=== PATIENT | male | born 2000 | race Caucasian/White ===

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

== ENCOUNTER 2023-08-05 00:34 | Inpatient (IN) ==
[2023-08-05] MEDS ORDERED: Tetan/Diph/Pertus SYR(Tdap) 0.5 ML SYR(BOOSTRIX) use SYR contains LATEX IM ONE (01:31)
[2023-08-05 01:55] LABS: ABS Eosinophils 0.4 10^3/uL (0.0-0.5); ABS Lymphocytes 1.9 10^3/uL (1.0-4.8); ABS Monocytes 0.5 10^3/uL (0.0-1.1); ABS Neutrophils 4.8 10^3/uL (1.5-7.6); ABS Nucleated RBC 0.01 10^3/ul; Eosinophil % 5.3 %; Hematocrit 46.2 % (38-53); Hemoglobin 16.2 g/dL (13.2-16.3); Lymphocyte % 25.2 %; Mean Corpuscular Hemoglobin 31.3 pg (27-33); Mean Corpuscular Volume 89.5 fL (80-97); Mean Platelet Volume 8.8 fL (7.5-11.2); Nucleated Red Blood Cells % 0.1 %/100WBC (0.0-0.8); Platelet Count 268 10^3/uL (150-450); Red Blood Count 5.16 10^6/uL (4.06-5.63); Red Cell Distribution Width 12.7 % (12-17); White Blood Count 7.6 10^3/uL (3.6-10.2)
[2023-08-05 02:09] LABS: Urine Appearance Clear; Urine Bilirubin Negative (Negative); Urine Blood Negative (Negative); Urine Color Straw; Urine Glucose Negative (Negative); Urine Ketones Trace (Negative); Urine Nitrite Negative (Negative); Urine Protein Negative (Negative); Urine Specific Gravity 1.008 (1.002-1.030); Urine Urobilinogen Negative (Negative)
[2023-08-05 02:13] LABS: ALT 17 U/L (7-52); AST 19 U/L (13-39); Albumin 5.1 g/dL (3.2-5.2); Albumin/Globulin Ratio 1.8 (1-3); Alkaline Phosphatase 63 U/L (35-149); Anion Gap 11 mmol/L (2-16); Blood Urea Nitrogen 12 mg/dL (6-24); CO2 Carbon Dioxide 24 mmol/L (22-32); Chloride 105 mmol/L (101-111); Creatinine, Serum 1.08 mg/dL (0.67-1.17); Globulin 2.8 g/dL (2-4); Glucose 84 mg/dL (70-100); Potassium 3.9 mmol/L (3.5-5.0); Sodium 140 mmol/L (135-145); Total Bilirubin 0.8 mg/dL (0.2-1.0); Total Protein 7.9 g/dL (6.4-8.9); eGFR CKD-EPI 97.7 (>60)
[2023-08-05 02:25] LABS: Acetaminophen < 15 mcg/mL; Alcohol, S 53 mg/dL (<13); Salicylate < 2.50 mg/dL (<30)
[2023-08-05 02:27] LABS: Urine Benzodiazepine Screen None Detected (None Detect); Urine Cannabinoids Screen Presumptive Positive (None Detect); Urine Opiates Screen None Detected (None Detect)
[2023-08-05 02:41] LABS: TSH Ultra Thyroid Stim Horm 1.13 mcIU/mL (0.34-5.60)
[2023-08-05] MEDS ORDERED: Neosporin TOPICAL OINT PACKET TOPICAL ONE (03:32)
[2023-08-05] MEDS ORDERED: Al Hydrox/Mg Hydrox/Simet LIQ 30 ML UDC PO PRN (03:42)
[2023-08-05] MEDS ORDERED: LORazepam PO (enter doses in WAM protocol) PO SCH (04:00)
[2023-08-05] MEDS: Nicotine PATCH 21 MG/24 HR PATCH TRANSDERM SCH (08:35)
[2023-08-05] MEDS: Vitamin THERAPEUTIC TAB PO SCH (08:37)
[2023-08-05] MEDS: Thiamine TAB* 100 MG TAB DAILY (@ T+1) PO SCH (08:37)
[2023-08-05] MEDS: Folic Acid TAB* 1 MG DAILY PO SCH (08:37)
[2023-08-05] MEDS: DULoxetine DR 30 mg CAP PO SCH ×2 (12:43→20:06)
[2023-08-06 08:06] LABS: HDL Cholesterol 46.8 mg/dL
[2023-08-06] MEDS: Nicotine PATCH 21 MG/24 HR PATCH TRANSDERM SCH (08:44)
[2023-08-06] MEDS: DULoxetine DR 30 mg CAP PO SCH ×4 (08:45→20:19)
[2023-08-06] MEDS: Vitamin THERAPEUTIC TAB PO SCH (08:46)
[2023-08-06] MEDS: Thiamine TAB* 100 MG TAB DAILY (@ T+1) PO SCH (08:46)
[2023-08-06] MEDS: Folic Acid TAB* 1 MG DAILY PO SCH (08:46)
[2023-08-06] MEDS ORDERED: Nicotine Lozenge mini 4 MG LOZNG.MINI MT PRN (10:04)
[2023-08-06] MEDS ORDERED: DULoxetine DR 30 mg CAP ONE (10:27)
[2023-08-06] MEDS: Nicotine GUM 2MG FRUIT FLAVOR PO PRN ×2 (17:24→20:19)
[2023-08-07] MEDS: DULoxetine DR 30 mg CAP PO SCH ×2 (07:34→20:22)
[2023-08-07] MEDS: Thiamine TAB* 100 MG TAB DAILY (@ T+1) PO SCH (07:34)
[2023-08-07] MEDS: Folic Acid TAB* 1 MG DAILY PO SCH (07:35)
[2023-08-07] MEDS: Nicotine PATCH 21 MG/24 HR PATCH TRANSDERM SCH (07:35)
[2023-08-07] MEDS: Vitamin THERAPEUTIC TAB PO SCH (07:35)
[2023-08-07] MEDS: Nicotine GUM 2MG FRUIT FLAVOR PO PRN ×3 (08:51→17:06)
[2023-08-08] MEDS: Thiamine TAB* 100 MG TAB DAILY (@ T+1) PO SCH (07:46)
[2023-08-08] MEDS: Nicotine GUM 2MG FRUIT FLAVOR PO PRN ×5 (07:46→21:04)
[2023-08-08] MEDS: DULoxetine DR 30 mg CAP PO SCH ×2 (07:46→21:03)
[2023-08-08] MEDS: Folic Acid TAB* 1 MG DAILY PO SCH (07:46)
[2023-08-08] MEDS: Nicotine PATCH 21 MG/24 HR PATCH TRANSDERM SCH (07:48)
[2023-08-08] MEDS: Vitamin THERAPEUTIC TAB PO SCH (07:48)
[2023-08-09] MEDS: DULoxetine DR 30 mg CAP PO SCH ×2 (07:51→20:34)
[2023-08-09] MEDS: Nicotine PATCH 21 MG/24 HR PATCH TRANSDERM SCH (07:51)
[2023-08-09] MEDS: Thiamine TAB* 100 MG TAB DAILY (@ T+1) PO SCH (07:51)
[2023-08-09] MEDS: Vitamin THERAPEUTIC TAB PO SCH (07:51)
[2023-08-09] MEDS: Folic Acid TAB* 1 MG DAILY PO SCH (07:51)
[2023-08-09] MEDS: Nicotine GUM 2MG FRUIT FLAVOR PO PRN ×4 (09:04→20:35)
[2023-08-10] MEDS: Vitamin THERAPEUTIC TAB PO SCH (08:15)
[2023-08-10] MEDS: Folic Acid TAB* 1 MG DAILY PO SCH (08:15)
[2023-08-10] MEDS: DULoxetine DR 30 mg CAP PO SCH ×2 (08:15→20:41)
[2023-08-10] MEDS: Thiamine TAB* 100 MG TAB DAILY (@ T+1) PO SCH (08:16)
[2023-08-10] MEDS: Nicotine PATCH 21 MG/24 HR PATCH TRANSDERM SCH (08:17)
[2023-08-10] MEDS: Nicotine GUM 2MG FRUIT FLAVOR PO PRN ×3 (09:02→17:17)
[2023-08-11] MEDS: DULoxetine DR 30 mg CAP PO SCH (07:26)
[2023-08-11] MEDS: Thiamine TAB* 100 MG TAB DAILY (@ T+1) PO SCH (07:26)
[2023-08-11] MEDS: Folic Acid TAB* 1 MG DAILY PO SCH (07:27)
[2023-08-11] MEDS: Nicotine PATCH 21 MG/24 HR PATCH TRANSDERM SCH (07:28)
[2023-08-11] MEDS: Vitamin THERAPEUTIC TAB PO SCH (07:28)
[2023-08-11 07:39] VITALS: BP 135/88
[2023-08-11] MEDS: Nicotine GUM 2MG FRUIT FLAVOR PO PRN (12:17)
== END 2023-08-11 14:01 | disposition home or self-care (01) | DRG 881 ==
LOC: ED 00:34 → BSU 03:00
PROVIDERS: ADMIT Psychiatry & Neurology Psychiatry; ATTEND Psychiatry & Neurology Psychiatry